=== PATIENT | female | born 1990 | race Caucasian/White ===

== ENCOUNTER 2022-04-29 07:30 | Day surgery (SDC) | payer BC ==
[2022-04-27 15:10] VITALS: BMI 21.7
[2022-04-29] MEDS ORDERED: KETAMINE HCL 500 MG/10 ML VIAL ONE (09:08)
[2022-04-29] MEDS ORDERED: SUCCINYLCHOLINE CHLORIDE 200 MG/10 ML SYRINGE ONE (09:21)
[2022-04-29 11:31] VITALS: BP 101/66; PULSE 63; TEMP 97.4
== END 2022-04-29 11:15 | disposition home or self-care (01) ==
LOC: FECT 07:30
PROVIDERS: ATTEND Psychiatry & Neurology Psychiatry
PROC: GZB4ZZZ Other Electroconvulsive Therapy (ICD-10-PCS; principal; 2022-04-29 09:27)
DX: F32.9 Major depressive disorder, single episode, unspecified (principal)
CPT/HCPCS: 81025; 90870; 94760; C9803-CS; U0003; U0005

== ENCOUNTER 2022-05-03 07:32 | Day surgery (SDC) | payer BC ==
[2022-05-03 08:08] VITALS: BMI 22.2
[2022-05-03] MEDS ORDERED: KETAMINE HCL 500 MG/10 ML VIAL ONE (09:16)
[2022-05-03] MEDS ORDERED: ACETAMINOPHEN 325 MG TABLET (FP) PO PRN (09:40)
[2022-05-03] MEDS ORDERED: PROMETHAZINE HCL 25 MG/1 ML VIAL IVPUSH PRN (09:40)
[2022-05-03] MEDS ORDERED: LACTATED RINGERS SOLUTION 1,000 ML IV SCH (09:45)
[2022-05-03 09:46] VITALS: TEMP 97.3
[2022-05-03 11:05] VITALS: BP 102/62; PULSE 69
== END 2022-05-03 11:00 | disposition home or self-care (01) ==
LOC: FECT 07:32
PROVIDERS: ATTEND Psychiatry & Neurology Psychiatry
PROC: GZB4ZZZ Other Electroconvulsive Therapy (ICD-10-PCS; principal; 2022-05-03 09:22)
DX: F31.9 Bipolar disorder, unspecified (principal)
CPT/HCPCS: 81025; 90870; 94760; C9803-CS; U0003; U0005

== ENCOUNTER 2022-05-05 08:06 | Day surgery (SDC) | payer BC ==
[2022-05-05 08:31] VITALS: BMI 22.2
[2022-05-05] MEDS ORDERED: KETAMINE HCL 500 MG/10 ML VIAL ONE (09:01)
[2022-05-05 10:03] VITALS: TEMP 97.5
[2022-05-05 10:53] VITALS: BP 97/60; PULSE 67
== END 2022-05-05 10:45 | disposition home or self-care (01) ==
LOC: FECT 08:06
PROVIDERS: ATTEND Psychiatry & Neurology Psychiatry
PROC: GZB4ZZZ Other Electroconvulsive Therapy (ICD-10-PCS; principal; 2022-05-05 09:13)
DX: F31.9 Bipolar disorder, unspecified (principal)
CPT/HCPCS: 90870; 94760

== ENCOUNTER 2022-05-06 08:07 | Day surgery (SDC) | payer BC ==
[2022-04-27 16:09] VITALS: BMI 21.7
[2022-05-06] MEDS ORDERED: KETAMINE HCL 500 MG/10 ML VIAL ONE (09:47)
[2022-05-06 11:30] VITALS: TEMP 98.1
[2022-05-06 11:31] VITALS: BP 100/66; PULSE 66
== END 2022-05-06 11:25 | disposition home or self-care (01) ==
LOC: FECT 08:07
PROVIDERS: ATTEND Psychiatry & Neurology Psychiatry
PROC: GZB4ZZZ Other Electroconvulsive Therapy (ICD-10-PCS; principal; 2022-05-06 09:56)
DX: F31.9 Bipolar disorder, unspecified (principal)
CPT/HCPCS: 90870; 94760; C9803-CS; U0003; U0005

== ENCOUNTER 2022-05-10 07:15 | Day surgery (SDC) | payer BC ==
[2022-05-03 10:11] VITALS: BMI 22.2
[2022-05-10] MEDS ORDERED: KETAMINE HCL 500 MG/10 ML VIAL ONE (08:22)
[2022-05-10] MEDS ORDERED: LIDOCAINE HCL/PF 2% SDV 5ML VIAL ONE (08:28)
[2022-05-10 09:37] VITALS: TEMP 97.6
[2022-05-10 10:27] VITALS: BP 100/63; PULSE 69
== END 2022-05-10 10:10 | disposition home or self-care (01) ==
LOC: FECT 07:15
PROVIDERS: ATTEND Psychiatry & Neurology Psychiatry
PROC: GZB4ZZZ Other Electroconvulsive Therapy (ICD-10-PCS; principal; 2022-05-10 08:31)
DX: F31.9 Bipolar disorder, unspecified (principal)
CPT/HCPCS: 81025; 90870; 94760; C9803-CS; U0003; U0005

== ENCOUNTER 2022-05-12 07:15 | Day surgery (SDC) | payer BC ==
[2022-05-03 13:52] VITALS: BMI 22.2
[2022-05-12] MEDS ORDERED: SUCCINYLCHOLINE CHLORIDE 200 MG/10 ML SYRINGE ONE (08:59)
[2022-05-12] MEDS ORDERED: KETAMINE HCL 500 MG/10 ML VIAL ONE (08:59)
[2022-05-12] MEDS ORDERED: DEXAMETHASONE SOD PHOSPHATE 4 MG/1 ML VIAL ONE (08:59)
[2022-05-12] MEDS ORDERED: ONDANSETRON 4 MG/2 ML VIAL ONE (08:59)
[2022-05-12] MEDS ORDERED: KETOROLAC TROMETHAMINE 30 MG/1 ML VIAL ONE (08:59)
[2022-05-12] MEDS ORDERED: PROPOFOL 20 ML ONE (08:59)
[2022-05-12 10:02] VITALS: TEMP 97.7
[2022-05-12 10:29] VITALS: BP 101/61; PULSE 66
[2022-05-12] MEDS ORDERED: LACTATED RINGERS SOLUTION 1,000 ML IV SCH (10:45)
== END 2022-05-12 10:30 | disposition home or self-care (01) ==
LOC: FECT 07:15
PROVIDERS: ATTEND Psychiatry & Neurology Psychiatry
PROC: GZB4ZZZ Other Electroconvulsive Therapy (ICD-10-PCS; principal; 2022-05-12 09:06)
DX: F31.9 Bipolar disorder, unspecified (principal)
CPT/HCPCS: 90870; 94760

== ENCOUNTER 2022-05-13 06:18 | Day surgery (SDC) | payer BC ==
[2022-05-13 06:35] VITALS: BMI 22.2
[2022-05-13] MEDS ORDERED: KETAMINE HCL 500 MG/10 ML VIAL ONE (07:54)
[2022-05-13 08:33] LABS: CREATININE 0.6 mg/dl (0.55-1.3)
[2022-05-13 09:18] VITALS: TEMP 98.2
[2022-05-13 09:43] VITALS: BP 99/60; PULSE 73
== END 2022-05-13 09:40 | disposition home or self-care (01) ==
LOC: FECT 06:18
PROVIDERS: ATTEND Psychiatry & Neurology Psychiatry
PROC: GZB4ZZZ Other Electroconvulsive Therapy (ICD-10-PCS; principal; 2022-05-13 08:08)
DX: F31.30 Bipolar disorder, current episode depressed, mild or moderate severity, unspecified (principal)
CPT/HCPCS: 36415; 80178; 82565; 84436; 84439; 84443; 84480; 90870; 94760; C9803-CS; U0003; U0005

== ENCOUNTER 2022-05-17 07:03 | Day surgery (SDC) | payer BC ==
[2022-05-10 13:13] VITALS: BMI 22.2
[2022-05-17] MEDS ORDERED: KETAMINE HCL 500 MG/10 ML VIAL ONE (07:49)
[2022-05-17] MEDS ORDERED: PROPOFOL 20 ML ONE (08:08)
[2022-05-17] MEDS ORDERED: SUCCINYLCHOLINE CHLORIDE 200 MG/10 ML SYRINGE ONE (08:09)
[2022-05-17 09:21] VITALS: PULSE 76
[2022-05-17 10:40] VITALS: BP 100/56; TEMP 97.8
== END 2022-05-17 10:45 | disposition home or self-care (01) ==
LOC: FECT 07:03
PROVIDERS: ATTEND Psychiatry & Neurology Psychiatry
PROC: GZB4ZZZ Other Electroconvulsive Therapy (ICD-10-PCS; principal; 2022-05-17 08:15)
DX: F31.9 Bipolar disorder, unspecified (principal)
CPT/HCPCS: 81025; 90870; 94760; C9803-CS; U0003; U0005

== ENCOUNTER 2022-05-19 09:11 | Day surgery (SDC) | payer BC ==
[2022-05-13 08:18] VITALS: BMI 22.2
[2022-05-19] MEDS ORDERED: PROPOFOL 20 ML ONE (11:12)
[2022-05-19] MEDS ORDERED: SUCCINYLCHOLINE CHLORIDE 200 MG/10 ML SYRINGE ONE (11:12)
[2022-05-19] MEDS ORDERED: KETAMINE HCL 500 MG/10 ML VIAL ONE (11:12)
[2022-05-19 12:15] VITALS: TEMP 97
[2022-05-19 12:34] VITALS: BP 104/62; PULSE 64
== END 2022-05-19 12:48 | disposition home or self-care (01) ==
LOC: FECT 09:11
PROVIDERS: ATTEND Psychiatry & Neurology Psychiatry
PROC: GZB4ZZZ Other Electroconvulsive Therapy (ICD-10-PCS; principal; 2022-05-19 11:18)
DX: F31.9 Bipolar disorder, unspecified (principal)
CPT/HCPCS: 90870; 94760

== ENCOUNTER 2022-05-20 06:38 | Day surgery (SDC) | payer BC ==
[2022-05-13 08:21] VITALS: BMI 22.2
[2022-05-20] MEDS ORDERED: KETAMINE HCL 500 MG/10 ML VIAL ONE (07:47)
[2022-05-20 08:27] VITALS: TEMP 97.1
[2022-05-20 08:53] VITALS: BP 98/56
[2022-05-20 09:15] VITALS: PULSE 69
== END 2022-05-20 09:30 | disposition home or self-care (01) ==
LOC: FECT 06:38
PROVIDERS: ATTEND Psychiatry & Neurology Psychiatry
PROC: GZB4ZZZ Other Electroconvulsive Therapy (ICD-10-PCS; principal; 2022-05-20 07:59)
DX: F31.9 Bipolar disorder, unspecified (principal)
CPT/HCPCS: 90870; 94760; C9803-CS; U0003; U0005

== ENCOUNTER 2022-05-24 06:27 | Day surgery (SDC) | payer BC ==
[2022-05-18 11:22] VITALS: BMI 22.2
[2022-05-24] MEDS ORDERED: KETAMINE HCL 500 MG/10 ML VIAL ONE (08:00)
[2022-05-24] MEDS ORDERED: KETOROLAC TROMETHAMINE 30 MG/1 ML VIAL ONE (08:00)
[2022-05-24] MEDS ORDERED: SUCCINYLCHOLINE CHLORIDE 200 MG/10 ML SYRINGE ONE (08:04)
[2022-05-24] MEDS ORDERED: ONDANSETRON 4 MG/2 ML VIAL ONE (08:04)
[2022-05-24] MEDS ORDERED: DEXAMETHASONE SOD PHOSPHATE 4 MG/1 ML VIAL ONE (08:04)
[2022-05-24] MEDS ORDERED: PROPOFOL 20 ML ONE (08:04)
[2022-05-24 09:52] VITALS: TEMP 97.8
[2022-05-24 09:53] VITALS: BP 98/60; PULSE 74
[2022-05-24] MEDS ORDERED: ONDANSETRON 4 MG/2 ML VIAL IVPUSH PRN (10:32)
== END 2022-05-24 10:10 | disposition home or self-care (01) ==
LOC: FECT 06:27
PROVIDERS: ATTEND Psychiatry & Neurology Psychiatry
PROC: GZB4ZZZ Other Electroconvulsive Therapy (ICD-10-PCS; principal; 2022-05-24 08:13)
DX: F31.9 Bipolar disorder, unspecified (principal)
CPT/HCPCS: 81025; 90870; 94760; C9803-CS; U0003; U0005

== ENCOUNTER 2022-05-26 06:59 | Day surgery (SDC) | payer BC ==
[2022-05-20 16:03] VITALS: BMI 22.2
[2022-05-26] MEDS ORDERED: LACTATED RINGERS SOLUTION 1,000 ML IV SCH (08:45)
[2022-05-26] MEDS ORDERED: KETAMINE HCL 500 MG/10 ML VIAL ONE (08:47)
[2022-05-26] MEDS ORDERED: SUCCINYLCHOLINE CHLORIDE 200 MG/10 ML SYRINGE ONE (08:55)
[2022-05-26 09:16] VITALS: TEMP 97.1
[2022-05-26 10:27] VITALS: BP 100/59; PULSE 65
== END 2022-05-26 10:30 | disposition home or self-care (01) ==
LOC: FECT 06:59
PROVIDERS: ATTEND Psychiatry & Neurology Psychiatry
PROC: GZB4ZZZ Other Electroconvulsive Therapy (ICD-10-PCS; principal; 2022-05-26 08:58)
DX: F31.9 Bipolar disorder, unspecified (principal)
CPT/HCPCS: 90870; 94760

== ENCOUNTER 2022-05-27 06:18 | Day surgery (SDC) | payer BC ==
[2022-05-24 15:30] VITALS: BMI 22.2
[2022-05-27] MEDS ORDERED: KETAMINE HCL 500 MG/10 ML VIAL ONE (07:26)
[2022-05-27 08:36] VITALS: PULSE 54; TEMP 97.8
[2022-05-27 09:37] VITALS: BP 102/64
== END 2022-05-27 09:25 | disposition home or self-care (01) ==
LOC: FECT 06:18
PROVIDERS: ATTEND Psychiatry & Neurology Psychiatry
PROC: GZB4ZZZ Other Electroconvulsive Therapy (ICD-10-PCS; principal; 2022-05-27 07:40)
DX: F31.9 Bipolar disorder, unspecified (principal)
CPT/HCPCS: 90870; 94760; C9803-CS; U0003; U0005

== ENCOUNTER 2022-05-31 06:04 | Day surgery (SDC) | payer BC ==
[2022-05-26 15:31] VITALS: BMI 22.2
[2022-05-31] MEDS ORDERED: KETAMINE HCL 500 MG/10 ML VIAL ONE (07:39)
[2022-05-31 08:58] VITALS: TEMP 97.8
[2022-05-31 09:14] VITALS: BP 129/60; PULSE 63
[2022-05-31] MEDS ORDERED: ACETAMINOPHEN 325 MG TABLET (FP) PO PRN (10:01)
== END 2022-05-31 09:56 | disposition home or self-care (01) ==
LOC: FECT 06:04
PROVIDERS: ATTEND Psychiatry & Neurology Psychiatry
PROC: GZB4ZZZ Other Electroconvulsive Therapy (ICD-10-PCS; principal; 2022-05-31 08:03)
DX: F31.9 Bipolar disorder, unspecified (principal)
CPT/HCPCS: 81025; 90870; 94760; C9803-CS; U0003; U0005

== ENCOUNTER 2022-06-03 06:16 | Day surgery (SDC) | payer BC ==
[2022-05-31 13:04] VITALS: BMI 22.2
[2022-06-03] MEDS ORDERED: KETAMINE HCL 500 MG/10 ML VIAL ONE (06:50)
[2022-06-03 13:25] VITALS: BP 102/62; PULSE 60; RESP 16; TEMP 98
== END 2022-06-03 09:00 | disposition home or self-care (01) ==
LOC: FECT 06:16
PROVIDERS: ATTEND Psychiatry & Neurology Psychiatry
PROC: GZB4ZZZ Other Electroconvulsive Therapy (ICD-10-PCS; principal; 2022-06-03 06:57)
DX: F31.30 Bipolar disorder, current episode depressed, mild or moderate severity, unspecified (principal)
CPT/HCPCS: 90870; 94760

== ENCOUNTER 2022-06-09 06:27 | Day surgery (SDC) | payer BC ==
[2022-06-08 12:27] VITALS: BMI 22.2
[2022-06-09] MEDS ORDERED: KETAMINE HCL 500 MG/10 ML VIAL ONE (07:47)
[2022-06-09 09:21] VITALS: RESP 18; TEMP 98
[2022-06-09 11:23] VITALS: BP 95/56; PULSE 61
== END 2022-06-09 09:55 | disposition home or self-care (01) ==
LOC: FECT 06:27
PROVIDERS: ATTEND Psychiatry & Neurology Psychiatry
PROC: GZB4ZZZ Other Electroconvulsive Therapy (ICD-10-PCS; principal; 2022-06-09 07:58)
DX: F31.9 Bipolar disorder, unspecified (principal)
CPT/HCPCS: 81025; 90870; 94760

== ENCOUNTER 2022-06-17 06:22 | Day surgery (SDC) | payer BC ==
[2022-06-13 13:59] VITALS: BMI 22.2
[2022-06-17] MEDS ORDERED: KETAMINE HCL 500 MG/10 ML VIAL ONE (08:36)
[2022-06-17 09:48] VITALS: RESP 18; TEMP 97
[2022-06-17 10:06] VITALS: BP 96/54; PULSE 73
== END 2022-06-17 10:37 | disposition home or self-care (01) ==
LOC: FECT 06:22
PROVIDERS: ATTEND Psychiatry & Neurology Psychiatry
PROC: GZB4ZZZ Other Electroconvulsive Therapy (ICD-10-PCS; principal; 2022-06-17 08:51)
DX: F31.9 Bipolar disorder, unspecified (principal)
CPT/HCPCS: 81025; 90870; 94760

== ENCOUNTER 2022-06-24 06:26 | Day surgery (SDC) | payer BC ==
[2022-06-08 12:44] VITALS: BMI 22.2
[2022-06-24] MEDS ORDERED: KETAMINE HCL 500 MG/10 ML VIAL ONE (07:35)
[2022-06-24] MEDS ORDERED: PROPOFOL 20 ML ONE (07:52)
[2022-06-24 08:23] VITALS: TEMP 97
[2022-06-24 09:21] VITALS: RESP 18
[2022-06-24 09:22] VITALS: BP 101/61; PULSE 77
== END 2022-06-24 09:20 | disposition home or self-care (01) ==
LOC: FECT 06:26
PROVIDERS: ATTEND Psychiatry & Neurology Psychiatry
PROC: GZB4ZZZ Other Electroconvulsive Therapy (ICD-10-PCS; principal; 2022-06-24 07:54)
DX: F31.9 Bipolar disorder, unspecified (principal)
CPT/HCPCS: 81025; 90870; 94760

== ENCOUNTER 2022-06-30 06:18 | Day surgery (SDC) | payer BC ==
[2022-06-01 12:25] VITALS: BMI 22.2
[2022-06-30 09:01] VITALS: PULSE 66; RESP 18; TEMP 97.4
[2022-06-30 09:57] VITALS: BP 94/52
== END 2022-06-30 09:41 | disposition home or self-care (01) ==
LOC: FECT 06:18
PROVIDERS: ATTEND Psychiatry & Neurology Psychiatry
PROC: GZB4ZZZ Other Electroconvulsive Therapy (ICD-10-PCS; principal; 2022-06-30 08:13)
DX: F31.9 Bipolar disorder, unspecified (principal)
CPT/HCPCS: 81025; 90870; 94760

== ENCOUNTER 2022-07-08 08:43 | Day surgery (SDC) | payer BC ==
[2022-07-05 12:28] VITALS: BMI 22.2
[2022-07-08] MEDS ORDERED: PROMETHAZINE HCL 25 MG/1 ML VIAL IVPUSH PRN (09:34)
[2022-07-08] MEDS ORDERED: ACETAMINOPHEN 325 MG TABLET (FP) PO PRN (09:34)
[2022-07-08] MEDS ORDERED: LACTATED RINGERS SOLUTION 1,000 ML IV SCH (09:45)
[2022-07-08 11:44] VITALS: RESP 18; TEMP 97.6
[2022-07-08 11:51] VITALS: BP 94/51; PULSE 62
== END 2022-07-08 12:05 | disposition home or self-care (01) ==
LOC: FECT 08:43
PROVIDERS: ATTEND Psychiatry & Neurology Psychiatry
PROC: GZB4ZZZ Other Electroconvulsive Therapy (ICD-10-PCS; principal; 2022-07-08 10:53)
DX: F31.9 Bipolar disorder, unspecified (principal)
CPT/HCPCS: 84703; 90870; 94760

== ENCOUNTER 2022-07-21 06:25 | Day surgery (SDC) | payer BC ==
[2022-07-15 13:03] VITALS: BMI 22.2
[2022-07-21 08:40] VITALS: TEMP 97.4
[2022-07-21 09:23] VITALS: RESP 18
[2022-07-21 09:34] VITALS: BP 101/62; PULSE 69
== END 2022-07-21 09:40 | disposition home or self-care (01) ==
LOC: FECT 06:25
PROVIDERS: ATTEND Psychiatry & Neurology Psychiatry
PROC: GZB4ZZZ Other Electroconvulsive Therapy (ICD-10-PCS; principal; 2022-07-21 08:11)
DX: F31.9 Bipolar disorder, unspecified (principal)
CPT/HCPCS: 81025; 90870; 94760

== ENCOUNTER 2023-06-29 09:02 | Day surgery (SDC) | payer BC ==
[2023-06-29 10:31] LABS: ALBUMIN 4.4 g/dl (3.4-5.0); BILIRUBIN,TOTAL 0.4 mg/dl (0.2-1); BLOOD UREA NITROGEN 13.4 mg/dl (7-18); CALCIUM 9.6 mg/dl (8.5-10.1); CREATININE 0.8 mg/dl (0.6-1.3); POTASSIUM 4.1 mmol/L (3.5-5.1); SGOT/AST 11.7 U/L (15-37); SGPT/ALT 10.3 U/L (7-52); TOT PROT 6.4 g/dl (6.4-8.2)
[2023-06-29 11:21] LABS: BASO % 0.7 % (0-2.0); EOS % 9.3 % (0-4.5); HEMATOCRIT 37.2 % (32.4-45.2); HEMOGLOBIN 12.6 GM/dL (10.7-15.3); LYMPH % 21.4 % (8-40); MCH 29.7 pg (25.7-33.7); MCHC 33.9 g/dl (32.0-36.0); MEAN CELL VOLUME 87.4 fl (80-96); MEAN PLT VOLUME 10.4 fl (7.5-11.1); MONO % 4.9 % (3.8-10.2); NEUT % 63.7 % (42.8-82.8); PLATELET COUNT 180 10^3/uL (134-434); RBC 4.25 M/mm3 (3.60-5.2); RDW 12.8 % (11.6-15.6); WHITE BLOOD COUNT 6.7 K/mm3 (4.0-10.0)
[2023-06-29 13:01] VITALS: RESP 16; TEMP 97.4
[2023-06-29 13:15] VITALS: BP 130/75; PULSE 100
== END 2023-06-29 13:17 | disposition home or self-care (01) ==
LOC: FECT 09:02
PROVIDERS: ATTEND Psychiatry & Neurology Psychiatry
PROC: GZB4ZZZ Other Electroconvulsive Therapy (ICD-10-PCS; principal; 2023-06-29 11:29)
DX: F31.9 Bipolar disorder, unspecified (principal)
CPT/HCPCS: 36415; 80053; 81025; 85025; 90870; 93005; 93010; 94760

== ENCOUNTER 2023-06-30 07:34 | Day surgery (SDC) | payer BC ==
[2023-06-29 15:48] VITALS: BMI 24.5
[2023-06-30 09:47] VITALS: RESP 18; TEMP 97.2
[2023-06-30 10:38] VITALS: BP 120/74; PULSE 77
== END 2023-06-30 10:27 | disposition home or self-care (01) ==
LOC: FECT 07:34
PROVIDERS: ATTEND Psychiatry & Neurology Psychiatry
PROC: GZB4ZZZ Other Electroconvulsive Therapy (ICD-10-PCS; principal; 2023-06-30 08:53)
DX: F31.9 Bipolar disorder, unspecified (principal)
CPT/HCPCS: 90870; 94760

== ENCOUNTER 2023-07-04 08:33 | Day surgery (SDC) | payer BC ==
[2023-06-30 16:06] VITALS: BMI 24.5
[2023-07-04 11:08] VITALS: TEMP 97.7
[2023-07-04 11:23] VITALS: BP 114/64; PULSE 76; RESP 19
== END 2023-07-04 11:20 | disposition home or self-care (01) ==
LOC: FECT 08:33
PROVIDERS: ATTEND Psychiatry & Neurology Psychiatry
PROC: GZB4ZZZ Other Electroconvulsive Therapy (ICD-10-PCS; principal; 2023-07-04 10:26)
DX: F31.9 Bipolar disorder, unspecified (principal)
CPT/HCPCS: 81025; 90870; 94760

== ENCOUNTER 2023-07-06 08:12 | Day surgery (SDC) | payer BC ==
[2023-07-03 15:54] VITALS: BMI 24.5
[2023-07-06] MEDS ORDERED: ONDANSETRON 4 MG/2 ML VIAL IVPUSH PRN (08:13)
[2023-07-06] MEDS ORDERED: LACTATED RINGERS SOLUTION 1,000 ML IV SCH (08:15)
[2023-07-06] MEDS ORDERED: KETAMINE HCL 500 MG/10 ML VIAL ONE (08:56)
[2023-07-06] MEDS ORDERED: PROPOFOL 20 ML ONE (08:56)
[2023-07-06] MEDS ORDERED: SUCCINYLCHOLINE CHLORIDE 200 MG/10 ML SYRINGE ONE (08:56)
[2023-07-06] MEDS ORDERED: KETOROLAC TROMETHAMINE 30 MG/1 ML VIAL ONE (08:57)
[2023-07-06] MEDS ORDERED: ONDANSETRON 4 MG/2 ML VIAL ONE (08:57)
[2023-07-06 09:48] VITALS: TEMP 97.5
[2023-07-07 11:00] VITALS: BP 115/67; PULSE 78; RESP 19
== END 2023-07-06 10:30 | disposition home or self-care (01) ==
LOC: FECT 08:12
PROVIDERS: ATTEND Psychiatry & Neurology Psychiatry
PROC: GZB4ZZZ Other Electroconvulsive Therapy (ICD-10-PCS; principal; 2023-07-06 09:26)
DX: F31.9 Bipolar disorder, unspecified (principal)
CPT/HCPCS: 90870; 94760

== ENCOUNTER 2023-07-07 07:32 | Day surgery (SDC) | payer BC ==
[2023-07-03 15:40] VITALS: BMI 24.5
[2023-07-07 09:42] VITALS: RESP 16; TEMP 97.7
[2023-07-07 10:02] VITALS: BP 103/69; PULSE 88
== END 2023-07-07 10:00 | disposition home or self-care (01) ==
LOC: FECT 07:32
PROVIDERS: ATTEND Psychiatry & Neurology Psychiatry
PROC: GZB4ZZZ Other Electroconvulsive Therapy (ICD-10-PCS; principal; 2023-07-07 08:49)
DX: F31.9 Bipolar disorder, unspecified (principal)
CPT/HCPCS: 90870; 94760

== ENCOUNTER 2023-07-11 09:28 | Day surgery (SDC) | payer BC ==
[2023-07-07 15:30] VITALS: BMI 24.5
[2023-07-11] MEDS ORDERED: PROMETHAZINE HCL 25 MG/1 ML VIAL IVPB PRN (11:05)
[2023-07-11] MEDS ORDERED: ACETAMINOPHEN 325 MG TABLET (FP) PO PRN (11:05)
[2023-07-11] MEDS ORDERED: LACTATED RINGERS SOLUTION 1,000 ML IV SCH (11:15)
[2023-07-11 11:39] VITALS: RESP 16; TEMP 97.4
[2023-07-11 11:50] VITALS: BP 112/68; PULSE 94
== END 2023-07-11 12:06 | disposition home or self-care (01) ==
LOC: FECT 09:28
PROVIDERS: ATTEND Psychiatry & Neurology Psychiatry
PROC: GZB4ZZZ Other Electroconvulsive Therapy (ICD-10-PCS; principal; 2023-07-11 10:47)
DX: F31.9 Bipolar disorder, unspecified (principal)
CPT/HCPCS: 81025; 90870; 94760

== ENCOUNTER 2023-07-13 09:33 | Day surgery (SDC) | payer BC ==
[2023-07-07 15:34] VITALS: BMI 24.5
[2023-07-13 11:27] VITALS: RESP 19; TEMP 97.7
[2023-07-13 11:29] VITALS: BP 98/70; PULSE 74
== END 2023-07-13 11:40 | disposition home or self-care (01) ==
LOC: FECT 09:33
PROVIDERS: ATTEND Psychiatry & Neurology Psychiatry
PROC: GZB4ZZZ Other Electroconvulsive Therapy (ICD-10-PCS; principal; 2023-07-13 10:40)
DX: F31.9 Bipolar disorder, unspecified (principal)
CPT/HCPCS: 90870; 94760

== ENCOUNTER 2023-07-14 08:01 | Day surgery (SDC) | payer BC ==
[2023-07-07 15:37] VITALS: BMI 24.5
[2023-07-14 10:05] VITALS: RESP 20; TEMP 97
[2023-07-14 10:29] VITALS: BP 116/78; PULSE 80
== END 2023-07-14 10:40 | disposition home or self-care (01) ==
LOC: FECT 08:01
PROVIDERS: ATTEND Psychiatry & Neurology Psychiatry
PROC: GZB4ZZZ Other Electroconvulsive Therapy (ICD-10-PCS; principal; 2023-07-14 08:53)
DX: F31.9 Bipolar disorder, unspecified (principal)
CPT/HCPCS: 90870; 94760

== ENCOUNTER 2023-07-18 06:59 | Day surgery (SDC) | payer BC ==
[2023-07-14 14:56] VITALS: BMI 24.5
[2023-07-18 09:23] VITALS: RESP 16
[2023-07-18 09:43] VITALS: PULSE 85; TEMP 98.1
[2023-07-18 10:19] VITALS: BP 102/50
== END 2023-07-18 10:23 | disposition home or self-care (01) ==
LOC: FECT 06:59
PROVIDERS: ATTEND Psychiatry & Neurology Psychiatry
PROC: GZB4ZZZ Other Electroconvulsive Therapy (ICD-10-PCS; principal; 2023-07-18 08:50)
DX: F31.9 Bipolar disorder, unspecified (principal)
CPT/HCPCS: 81025; 90870; 94760

== ENCOUNTER 2023-07-20 07:27 | Day surgery (SDC) | payer BC ==
[2023-07-14 15:03] VITALS: BMI 24.5
[2023-07-20 09:35] VITALS: PULSE 98; RESP 16; TEMP 97.9
[2023-07-20 09:59] VITALS: BP 102/71
== END 2023-07-20 10:10 | disposition home or self-care (01) ==
LOC: FECT 07:27
PROVIDERS: ATTEND Psychiatry & Neurology Psychiatry
PROC: GZB4ZZZ Other Electroconvulsive Therapy (ICD-10-PCS; principal; 2023-07-20 08:48)
DX: F31.9 Bipolar disorder, unspecified (principal)
CPT/HCPCS: 90870; 94760

== ENCOUNTER 2023-07-21 07:26 | Day surgery (SDC) | payer BC ==
[2023-07-19 14:58] VITALS: BMI 24.5
[2023-07-21] MEDS ORDERED: PROPOFOL 20 ML ONE (08:40)
[2023-07-21] MEDS ORDERED: SUCCINYLCHOLINE CHLORIDE 200 MG/10 ML SYRINGE ONE (08:40)
[2023-07-21 09:08] VITALS: TEMP 97.8
[2023-07-21] MEDS ORDERED: LIDOCAINE HCL/PF 2% SDV 5ML VIAL ONE (09:17)
[2023-07-21 09:59] VITALS: BP 101/65; PULSE 78; RESP 18
== END 2023-07-21 10:09 | disposition home or self-care (01) ==
LOC: FECT 07:26
PROVIDERS: ATTEND Psychiatry & Neurology Psychiatry
PROC: GZB4ZZZ Other Electroconvulsive Therapy (ICD-10-PCS; principal; 2023-07-21 08:42)
DX: F31.9 Bipolar disorder, unspecified (principal)
CPT/HCPCS: 90870; 94760

== ENCOUNTER 2023-07-25 07:25 | Day surgery (SDC) | payer BC ==
[2023-07-19 15:03] VITALS: BMI 24.5
[2023-07-25] MEDS ORDERED: SUCCINYLCHOLINE CHLORIDE 200 MG/10 ML SYRINGE ONE (08:47)
[2023-07-25] MEDS ORDERED: ONDANSETRON 4 MG/2 ML VIAL ONE (08:47)
[2023-07-25] MEDS ORDERED: KETOROLAC TROMETHAMINE 30 MG/1 ML VIAL ONE (08:47)
[2023-07-25] MEDS ORDERED: PROPOFOL 20 ML ONE (08:47)
[2023-07-25 09:37] VITALS: TEMP 97.1
[2023-07-25 09:49] VITALS: BP 106/60; PULSE 72; RESP 18
== END 2023-07-25 10:40 | disposition home or self-care (01) ==
LOC: FECT 07:25
PROVIDERS: ATTEND Psychiatry & Neurology Psychiatry
PROC: GZB4ZZZ Other Electroconvulsive Therapy (ICD-10-PCS; principal; 2023-07-25 08:56)
DX: F31.9 Bipolar disorder, unspecified (principal)
CPT/HCPCS: 81025; 90870; 94760

== ENCOUNTER 2023-07-28 06:35 | Day surgery (SDC) | payer BC ==
[2023-07-26 08:00] VITALS: BMI 24.5
[2023-07-28] MEDS ORDERED: PROPOFOL 20 ML ONE (07:26)
[2023-07-28] MEDS ORDERED: KETAMINE HCL 200 MG/20 ML VIAL ONE (07:27)
[2023-07-28] MEDS ORDERED: ONDANSETRON 4 MG/2 ML VIAL ONE (08:13)
[2023-07-28] MEDS ORDERED: DEXAMETHASONE SOD PHOSPHATE 4 MG/1 ML VIAL ONE (08:13)
[2023-07-28] MEDS ORDERED: KETOROLAC TROMETHAMINE 30 MG/1 ML VIAL ONE (08:13)
[2023-07-28 08:37] VITALS: TEMP 97.1
[2023-07-28 08:51] VITALS: BP 110/70; PULSE 74; RESP 18
== END 2023-07-28 09:13 | disposition home or self-care (01) ==
LOC: FECT 06:35
PROVIDERS: ATTEND Psychiatry & Neurology Psychiatry
PROC: GZB4ZZZ Other Electroconvulsive Therapy (ICD-10-PCS; principal; 2023-07-28 07:43)
DX: F31.9 Bipolar disorder, unspecified (principal)
CPT/HCPCS: 90870; 94760

== ENCOUNTER 2023-08-01 07:25 | Day surgery (SDC) | payer BC ==
[2023-08-01 07:44] VITALS: BMI 24.5
[2023-08-01] MEDS ORDERED: KETAMINE HCL 500 MG/10 ML VIAL ONE (08:12)
[2023-08-01 09:35] VITALS: TEMP 96.7
[2023-08-01 10:03] VITALS: RESP 19
[2023-08-01 10:11] VITALS: BP 114/72; PULSE 76
== END 2023-08-01 10:33 | disposition home or self-care (01) ==
LOC: FECT 07:25
PROVIDERS: ATTEND Psychiatry & Neurology Psychiatry
PROC: GZB4ZZZ Other Electroconvulsive Therapy (ICD-10-PCS; principal; 2023-08-01 09:13)
DX: F31.9 Bipolar disorder, unspecified (principal)
CPT/HCPCS: 81025; 90870; 94760

== ENCOUNTER 2023-12-15 10:14 | Day surgery (SDC) | payer SELFPAY ==
[2023-12-14 14:17] VITALS: BMI 26.6
[2023-12-15 13:10] VITALS: RESP 18; TEMP 97.9
[2023-12-15 14:00] VITALS: BP 110/65; PULSE 68
== END 2023-12-15 14:01 | disposition home or self-care (01) ==
LOC: FECT 10:14
PROVIDERS: ATTEND Student in an Organized Health Care Education/Training Program
PROC: GZB4ZZZ Other Electroconvulsive Therapy (ICD-10-PCS; principal; 2023-12-15 12:30)
DX: F31.9 Bipolar disorder, unspecified (principal)
CPT/HCPCS: 81025; 90870; 93005; 94760

== ENCOUNTER 2023-12-22 09:23 | Day surgery (SDC) | payer SELFPAY ==
[2023-12-20 11:41] VITALS: BMI 26.6
[2023-12-22 11:59] VITALS: TEMP 97.4
[2023-12-22 13:05] VITALS: RESP 18
[2023-12-22 13:07] VITALS: BP 113/76; PULSE 73
== END 2023-12-22 13:00 | disposition home or self-care (01) ==
LOC: FECT 09:23
PROVIDERS: ATTEND Student in an Organized Health Care Education/Training Program
PROC: GZB4ZZZ Other Electroconvulsive Therapy (ICD-10-PCS; principal; 2023-12-22 11:37)
DX: F31.9 Bipolar disorder, unspecified (principal)
CPT/HCPCS: 81025; 90870; 94760

== ENCOUNTER 2023-12-29 10:01 | Day surgery (SDC) | payer SELFPAY ==
[2023-12-29 10:42] VITALS: RESP 16; BMI 26.6
[2023-12-29] MEDS ORDERED: KETOROLAC TROMETHAMINE 30 MG/1 ML VIAL ONE (12:21)
[2023-12-29] MEDS ORDERED: ONDANSETRON 4 MG/2 ML VIAL ONE (12:21)
[2023-12-29] MEDS ORDERED: DEXAMETHASONE SOD PHOSPHATE 4 MG/1 ML VIAL ONE (12:21)
[2023-12-29] MEDS ORDERED: SUCCINYLCHOLINE CHLORIDE 200 MG/10 ML SYRINGE ONE (13:10)
[2023-12-29 13:43] VITALS: TEMP 98.1
[2023-12-29 13:46] VITALS: BP 106/64; PULSE 88
== END 2023-12-29 14:15 | disposition home or self-care (01) ==
LOC: FECT 10:01
PROVIDERS: ATTEND Student in an Organized Health Care Education/Training Program
PROC: GZB4ZZZ Other Electroconvulsive Therapy (ICD-10-PCS; principal; 2023-12-29 12:27)
DX: F31.9 Bipolar disorder, unspecified (principal)
CPT/HCPCS: 81025; 90870; 94760

== ENCOUNTER 2024-01-12 10:49 | Day surgery (SDC) | payer SELFPAY ==
[2023-12-29 14:33] VITALS: BMI 26.6
[2024-01-12 12:52] VITALS: TEMP 97.7
[2024-01-12 13:23] VITALS: BP 104/67; PULSE 82; RESP 17
== END 2024-01-12 13:23 | disposition home or self-care (01) ==
LOC: FECT 10:49
PROVIDERS: ATTEND Student in an Organized Health Care Education/Training Program
PROC: GZB4ZZZ Other Electroconvulsive Therapy (ICD-10-PCS; principal; 2024-01-12 11:51)
DX: F31.9 Bipolar disorder, unspecified (principal)
CPT/HCPCS: 81025; 90870; 94760

== ENCOUNTER 2024-02-02 08:32 | Day surgery (SDC) | payer SELFPAY ==
[2024-01-23 13:42] VITALS: BMI 26.6
[2024-02-02 10:53] VITALS: RESP 16
[2024-02-02 11:04] VITALS: PULSE 77
[2024-02-02 11:29] VITALS: BP 128/74; TEMP 97.9
== END 2024-02-02 11:46 | disposition home or self-care (01) ==
LOC: FECT 08:32
PROVIDERS: ATTEND Student in an Organized Health Care Education/Training Program
PROC: GZB4ZZZ Other Electroconvulsive Therapy (ICD-10-PCS; principal; 2024-02-02 10:20)
DX: F31.9 Bipolar disorder, unspecified (principal)
CPT/HCPCS: 81025; 90870; 94760

== ENCOUNTER → 2024-03-01 | Day surgery (SDC) | payer SELFPAY ==
[2024-02-26 08:29] VITALS: BMI 26.6
[~2024-03-01] MED LIST: DEXAMETHASONE SOD PHOSPHATE 4 MG/1 ML VIAL ONE; KETOROLAC TROMETHAMINE 30 MG/1 ML VIAL ONE; ONDANSETRON 4 MG/2 ML VIAL ONE
[2024-03-01 09:27] VITALS: RESP 16
[2024-03-01 11:51] VITALS: PULSE 84; TEMP 97.6
[2024-03-01 12:04] VITALS: BP 95/56
== END | disposition home or self-care (01) ==
LOC: FECT 08:57
PROVIDERS: ATTEND Student in an Organized Health Care Education/Training Program
PROC: GZB4ZZZ Other Electroconvulsive Therapy (ICD-10-PCS; principal; 2024-03-01 11:19)
DX: F31.9 Bipolar disorder, unspecified (principal)
CPT/HCPCS: 81025; 90870; 94760